=== PATIENT | female | born 1965 | race Caucasian/White ===

== ENCOUNTER 2019-04-19 19:00 | Outpatient (CLI) | payer OTHER | END 2019-04-19 23:59 | disposition home or self-care (01) | LOC: D.MAMMO 19:00 | PROVIDERS: ATTEND Family Medicine | DX: Z12.31 Encounter for screening mammogram for malignant neoplasm of breast (principal) ==

== ENCOUNTER → 2020-04-10 14:24 | Outpatient (CLI) | payer OTHER ==
[2020-04-10 16:14] LABS: HEMATOCRIT 42.8 % (36.0-48.0); HEMOGLOBIN 13.7 g/dL (12-16); MCH 29.7 pg (26.0-34.0); MCV 92.8 fL (80.0-100.0); MEAN PLATELET VOLUME 11.2 fL (7.4-10.4); PLATELET COUNT 191 10x3/uL (130-400); RBC 4.61 10x6/uL (4.00-5.40); RDW 13.4 % (11.5-14.5)
[2020-04-10 18:06] LABS: EOSINOPHILS 1 % (0-7); LYMPHOCYTES 57 % (15-50); MONOCYTES 1 % (2-11); NEUTROPHILS 40 % (40-80); PLATELET ESTIMATE NORMAL
== END | disposition home or self-care (01) ==
LOC: D.LABREF 14:24
PROVIDERS: ATTEND Legal Medicine
DX: D72.818 Other decreased white blood cell count (principal)